=== PATIENT | male | born 1985 | race Two or more races ===

== ENCOUNTER 2017-05-12 15:43 | Emergency (ER) | payer MEDICAID ==
[2017-05-12 16:43] VITALS: BP 147/97
== END 2017-05-12 16:43 | disposition home or self-care (01) ==
LOC: ED 15:43
DX: S13.4XXA Sprain of ligaments of cervical spine, initial encounter (principal); S39.012A Strain of muscle, fascia and tendon of lower back, initial encounter; V49.49XA Driver injured in collision with other motor vehicles in traffic accident, initial encounter; Y93.89 Activity, other specified; Y99.8 Other external cause status; Y92.411 Interstate highway as the place of occurrence of the external cause